=== PATIENT | male | born 1955 | race Caucasian/White ===

== ENCOUNTER 2019-07-29 09:39 | Outpatient (CLI) | payer MEDICARE, SELFPAY ==
[2019-07-29 09:55] LABS: Basophils Absolute Auto 0.1 K/mm3 (0.0-0.1); Basophils Percent Auto 0.6 % (0.2-1.2); Eosinophils Absolute Auto 0.2 K/mm3 (0-0.3); Eosinophils Percent Auto 1.4 % (0-4.4); Hematocrit 40.4 % (42.0-52.0); Hemoglobin 12.5 g/dL (14.0-18.0); Immature Granulocyte Absolute 0.07 K/mm3 (0.00-0.031); Immature Granulocyte Percent A 0.5 % (0-0.5); Lymphocytes Absolute Auto 2.71 K/mm3 (0.9-3.2); Lymphocytes Percent Auto 19.4 % (18.3-44.2); Mean Corpuscular HGB Conc 30.9 g/dl (32-36); Mean Corpuscular Hemoglobin 28.9 pg (26-34); Mean Corpuscular Volume 93.3 fl (80-100); Mean Platelet Volume 9.6 fl (7.4-10.4); Monocytes Absolute Auto 0.8 K/mm3 (0.1-0.6); Monocytes Percent Auto 5.9 % (2.6-8.5); Neutrophils Absolute Auto 10.1 K/mm3 (1.3-6.7); Neutrophils Percent Auto 72.2 % (45.5-73.1); Platelet Count Result 319 k/mm3 (150-375); Red Blood Count 4.33 M/mm3 (4.6-6.20); Red Cell Distribution Width 13.9 % (11.5-14.5)
[2019-07-29 12:21] LABS: Blood Urea Nitrogen 22 mg/dL (9-20); Calcium 8.8 mg/dL (8.4-10.2); Carbon Dioxide 25 mmol/L (22-30); Chloride 106 mmol/L (98-107); Estimated Glomerular Filt Rate 38; Glucose 109 mg/dL (75-110); Potassium 4.7 mmol/L (3.4-5.0); Sodium 139 mmol/L (137-145)
[2019-07-29 12:26] LABS: Immunoglobulin A 292 mg/dL (70-400); Immunoglobulin G 1654 mg/dL (700-1600); Immunoglobulin M 31 mg/dL (40-230)
[2019-07-31 03:35] LABS: Lambda Light Chain 43.9 mg/L (5.7-26.3)
[2019-07-31 23:20] LABS: Abnormal Protein Band 1 0.6 g/dL; Albumin 3.4 g/dL (3.8-4.8); Alpha 1 Globulin 0.4 g/dL (0.2-0.3); Beta 1 Globulin 0.4 g/dL (0.4-0.6); Gamma Globulin 1.5 g/dL (0.8-1.7); Protein, Total 7.1 g/dL (6.1-8.1)
== END 2019-07-29 09:40 | disposition home or self-care (01) ==
LOC: ANHLAB 09:40
PROVIDERS: PCP Internal Medicine; Visit Provider Internal Medicine Hematology & Oncology
DX: D47.2 Monoclonal gammopathy (principal)
CPT/HCPCS: 36415; 80048; 82784; 83883; 84155; 84165; 85025; 86334

== ENCOUNTER 2020-07-27 10:57 | Outpatient (CLI) | payer MEDICARE, SELFPAY ==
[2020-07-27 11:29] LABS: Basophils Absolute Auto 0.1 K/mm3 (0.0-0.1); Eosinophils Absolute Auto 0.3 K/mm3 (0-0.3); Eosinophils Percent Auto 2.7 % (0-4.4); Hematocrit 41.7 % (42.0-52.0); Hemoglobin 13.7 g/dL (14.0-18.0); Immature Granulocyte Absolute 0.03 K/mm3 (0.00-0.031); Immature Granulocyte Percent A 0.3 % (0-0.5); Lymphocytes Absolute Auto 2.37 K/mm3 (0.9-3.2); Lymphocytes Percent Auto 23.9 % (18.3-44.2); Mean Corpuscular HGB Conc 32.9 g/dl (32-36); Mean Corpuscular Hemoglobin 30.2 pg (26-34); Mean Corpuscular Volume 91.9 fl (80-100); Mean Platelet Volume 9.4 fl (7.4-10.4); Monocytes Absolute Auto 0.8 K/mm3 (0.1-0.6); Monocytes Percent Auto 8.1 % (2.6-8.5); Neutrophils Absolute Auto 6.4 K/mm3 (1.3-6.7); Platelet Count Result 259 k/mm3 (150-375); Red Blood Count 4.54 M/mm3 (4.6-6.20); Red Cell Distribution Width 14.2 % (11.5-14.5); White Blood Count 9.9 K/mm3 (4.5-10.0)
[2020-07-27 12:33] LABS: Alanine Aminotransferase 24 U/L (4-50); Albumin Level 4.2 g/dL (3.5-5.1); Alkaline Phosphatase 94 U/L (38-126); Anion Gap 6 mmol/L (8-16); Aspartate Amino Transferase 37 U/L (17-59); Bilirubin,Total 0.4 mg/dL (0.2-1.3); Blood Urea Nitrogen 24 mg/dL (9-20); Calcium 8.7 mg/dL (8.4-10.2); Carbon Dioxide 27 mmol/L (22-30); Chloride 108 mmol/L (98-107); Estimated Glomerular Filt Rate 33; Glucose 95 mg/dL (75-110); Potassium 5.3 mmol/L (3.4-5.0); Sodium 141 mmol/L (137-145)
[2020-07-27 12:42] LABS: Immunoglobulin A 244 mg/dL (70-400); Immunoglobulin G 1615 mg/dL (700-1600); Immunoglobulin M 32 mg/dL (40-230)
[2020-07-30 15:36] LABS: Kappa\\Lambda Light Chains 2.41 (0.26-1.65); Lambda Light Chain 40.4 mg/L (5.7-26.3)
[2020-07-30 22:21] LABS: Alpha 1 Globulin 0.3 g/dL (0.2-0.3); Alpha 2 Globulin 0.8 g/dL (0.5-0.9); Beta 1 Globulin 0.4 g/dL (0.4-0.6); Gamma Globulin 1.4 g/dL (0.8-1.7); Protein, Total 7.4 g/dL (6.1-8.1)
== END 2020-07-27 10:58 | disposition home or self-care (01) ==
LOC: ANHLAB 10:59
PROVIDERS: PCP Internal Medicine; Visit Provider Internal Medicine Hematology & Oncology
DX: D47.2 Monoclonal gammopathy (principal)
CPT/HCPCS: 36415; 80053; 82784; 83883; 84155; 84165; 85025; 86334

== ENCOUNTER 2021-07-26 09:25 | Outpatient (CLI) | payer MEDICARE, SELFPAY ==
[2021-07-26 09:50] LABS: Basophils Absolute Auto 0.1 K/mm3 (0.0-0.1); Basophils Percent Auto 0.9 % (0.2-1.2); Eosinophils Absolute Auto 0.3 K/mm3 (0-0.3); Eosinophils Percent Auto 3.2 % (0-4.4); Hematocrit 44.8 % (42.0-52.0); Hemoglobin 14.2 g/dL (14.0-18.0); Immature Granulocyte Absolute 0.04 K/mm3 (0.00-0.031); Immature Granulocyte Percent A 0.4 % (0-0.5); Lymphocytes Absolute Auto 2.11 K/mm3 (0.9-3.2); Lymphocytes Percent Auto 22.8 % (18.3-44.2); Mean Corpuscular HGB Conc 31.7 g/dl (32-36); Mean Corpuscular Hemoglobin 31.3 pg (26-34); Mean Corpuscular Volume 98.9 fl (80-100); Mean Platelet Volume 9.9 fl (7.4-10.4); Monocytes Absolute Auto 0.8 K/mm3 (0.1-0.6); Monocytes Percent Auto 8.8 % (2.6-8.5); Neutrophils Absolute Auto 5.9 K/mm3 (1.3-6.7); Neutrophils Percent Auto 63.9 % (45.5-73.1); Platelet Count Result 218 k/mm3 (150-375); Red Blood Count 4.53 M/mm3 (4.6-6.20); Red Cell Distribution Width 12.9 % (11.5-14.5); White Blood Count 9.3 K/mm3 (4.5-10.0)
[2021-07-26 15:45] LABS: Alanine Aminotransferase 47 U/L (4-50); Albumin Level 4.1 g/dL (3.5-5.1); Alkaline Phosphatase 91 U/L (38-126); Anion Gap 7 mmol/L (8-16); Aspartate Amino Transferase 53 U/L (17-59); Bilirubin,Total 0.5 mg/dL (0.2-1.3); Blood Urea Nitrogen 19 mg/dL (9-20); Calcium 8.9 mg/dL (8.4-10.2); Carbon Dioxide 24 mmol/L (22-30); Chloride 110 mmol/L (98-107); Estimated Glomerular Filt Rate 43; Glucose 96 mg/dL (65-110); Potassium 4.4 mmol/L (3.4-5.0); Sodium 141 mmol/L (137-145)
[2021-07-26 15:56] LABS: Immunoglobulin A 237 mg/dL (70-400); Immunoglobulin G 1195 mg/dL (700-1600); Immunoglobulin M 49 mg/dL (40-230)
[2021-07-29 05:21] LABS: Abnormal Protein Band 1 0.3 g/dL; Alpha 1 Globulin 0.3 g/dL (0.2-0.3); Alpha 2 Globulin 0.7 g/dL (0.5-0.9); Beta 1 Globulin 0.4 g/dL (0.4-0.6); Gamma Globulin 1.3 g/dL (0.8-1.7)
[2021-07-29 07:22] LABS: Kappa\\Lambda Light Chains 1.66 (0.26-1.65); Lambda Light Chain 35.8 mg/L (5.7-26.3)
== END 2021-07-26 09:26 | disposition home or self-care (01) ==
LOC: ANHLAB 09:26
PROVIDERS: PCP Internal Medicine; Visit Provider Internal Medicine Hematology & Oncology
DX: D47.2 Monoclonal gammopathy (principal)
CPT/HCPCS: 36415; 80053; 82784; 83883; 84155; 84165; 85025

== ENCOUNTER 2022-07-21 09:05 | Outpatient (CLI) | payer MEDICARE, SELFPAY ==
[2022-07-21 09:26] LABS: Basophils Absolute Auto 0.1 K/mm3 (0.0-0.1); Basophils Percent Auto 0.6 % (0.2-1.2); Eosinophils Absolute Auto 0.3 K/mm3 (0-0.3); Eosinophils Percent Auto 2.6 % (0-4.4); Hematocrit 43.4 % (42.0-52.0); Hemoglobin 14.3 g/dL (14.0-18.0); Immature Granulocyte Absolute 0.02 K/mm3 (0.00-0.031); Immature Granulocyte Percent A 0.2 % (0-0.5); Lymphocytes Absolute Auto 2.16 K/mm3 (0.9-3.2); Lymphocytes Percent Auto 22.5 % (18.3-44.2); Mean Corpuscular HGB Conc 32.9 g/dl (32-36); Mean Corpuscular Hemoglobin 31.4 pg (26-34); Mean Corpuscular Volume 95.4 fl (80-100); Mean Platelet Volume 9.7 fl (7.4-10.4); Neutrophils Absolute Auto 6.1 K/mm3 (1.3-6.7); Neutrophils Percent Auto 64.1 % (45.5-73.1); Platelet Count Result 228 k/mm3 (150-375); Red Blood Count 4.55 M/mm3 (4.6-6.20); Red Cell Distribution Width 12.3 % (11.5-14.5); White Blood Count 9.6 K/mm3 (4.5-10.0)
[2022-07-21 09:54] LABS: Alanine Aminotransferase 25 U/L (6-50); Albumin Level 4.2 g/dL (3.5-5.1); Alkaline Phosphatase 82 U/L (38-126); Anion Gap 6 mmol/L (8-16); Aspartate Amino Transferase 41 U/L (17-59); Bilirubin,Total 0.7 mg/dL (0.2-1.3); Blood Urea Nitrogen 16 mg/dL (9-20); Calcium 8.5 mg/dL (8.4-10.2); Carbon Dioxide 30 mmol/L (22-30); Chloride 105 mmol/L (98-107); Estimated Glomerular Filt Rate 50; Glucose 105 mg/dL (65-110); Immunoglobulin A 232 mg/dL (70-400); Immunoglobulin G 1274 mg/dL (700-1600); Immunoglobulin M 47 mg/dL (40-230); Potassium 3.8 mmol/L (3.4-5.0); Sodium 141 mmol/L (137-145)
[2022-07-25 12:30] LABS: Abnormal Protein Band 1 0.3 g/dL; Albumin 3.8 g/dL (3.8-4.8); Alpha 1 Globulin 0.3 g/dL (0.2-0.3); Alpha 2 Globulin 0.8 g/dL (0.5-0.9); Beta 1 Globulin 0.4 g/dL (0.4-0.6); Gamma Globulin 1.2 g/dL (0.8-1.7); Protein, Total 6.9 g/dL (6.1-8.1)
[2022-07-26 09:49] LABS: Kappa\\Lambda Light Chains 1.49 (0.26-1.65); Lambda Light Chain 37.1 mg/L (5.7-26.3)
== END 2022-07-21 09:06 | disposition home or self-care (01) ==
LOC: ANHLAB 09:06
PROVIDERS: PCP Internal Medicine; Visit Provider Internal Medicine Hematology & Oncology
DX: D47.2 Monoclonal gammopathy (principal)
CPT/HCPCS: 36415; 80053; 82784; 83883; 84155; 84165; 85025

== ENCOUNTER 2023-07-12 10:41 | Outpatient (CLI) | payer MEDICARE, SELFPAY ==
[2023-07-12 11:05] LABS: Basophils Absolute Auto 0.1 K/mm3 (0.0-0.1); Basophils Percent Auto 0.9 % (0.2-1.2); Eosinophils Absolute Auto 0.4 K/mm3 (0-0.3); Eosinophils Percent Auto 5.4 % (0-4.4); Hematocrit 40.6 % (42.0-52.0); Hemoglobin 13.4 g/dL (14.0-18.0); Immature Granulocyte Absolute 0.01 K/mm3 (0.00-0.031); Immature Granulocyte Percent A 0.1 % (0-0.5); Lymphocytes Absolute Auto 2.04 K/mm3 (0.9-3.2); Lymphocytes Percent Auto 28.9 % (18.3-44.2); Mean Corpuscular Hemoglobin 31.4 pg (26-34); Mean Corpuscular Volume 95.1 fl (80-100); Monocytes Absolute Auto 0.6 K/mm3 (0.1-0.6); Monocytes Percent Auto 9.1 % (2.6-8.5); Neutrophils Absolute Auto 3.9 K/mm3 (1.3-6.7); Neutrophils Percent Auto 55.6 % (45.5-73.1); Platelet Count Result 213 k/mm3 (150-375); Red Blood Count 4.27 M/mm3 (4.6-6.20); Red Cell Distribution Width 12.4 % (11.5-14.5); White Blood Count 7.1 K/mm3 (4.5-10.0)
[2023-07-12 17:20] LABS: Alanine Aminotransferase 24 U/L (6-50); Alkaline Phosphatase 81 U/L (38-126); Anion Gap 7 mmol/L (8-16); Aspartate Amino Transferase 38 U/L (17-59); Bilirubin,Total 0.6 mg/dL (0.2-1.3); Blood Urea Nitrogen 25 mg/dL (9-20); Calcium 8.9 mg/dL (8.4-10.2); Carbon Dioxide 24 mmol/L (22-30); Chloride 110 mmol/L (98-107); Estimated Glomerular Filt Rate 40; Glucose 97 mg/dL (65-110); Potassium 4.5 mmol/L (3.4-5.0); Sodium 141 mmol/L (137-145)
[2023-07-14 12:14] LABS: Immunoglobulin A 230 mg/dL (70-400); Immunoglobulin G 1360 mg/dL (700-1600); Immunoglobulin M 44 mg/dL (40-230)
[2023-07-14 21:01] LABS: Kappa\\Lambda Light Chains 1.84 (0.26-1.65); Lambda Light Chain 36.2 mg/L (5.7-26.3)
[2023-07-15 09:00] LABS: Abnormal Protein Band 1 0.3 g/dL; Albumin 3.8 g/dL (3.8-4.8); Alpha 1 Globulin 0.3 g/dL (0.2-0.3); Alpha 2 Globulin 0.7 g/dL (0.5-0.9); Beta 1 Globulin 0.4 g/dL (0.4-0.6); Gamma Globulin 1.2 g/dL (0.8-1.7); Protein, Total 6.7 g/dL (6.1-8.1)
== END 2023-07-12 10:42 | disposition home or self-care (01) ==
LOC: ANHLAB 10:43
PROVIDERS: PCP Internal Medicine; Visit Provider Internal Medicine Hematology & Oncology
DX: D47.2 Monoclonal gammopathy (principal)
CPT/HCPCS: 36415; 80053; 82784; 83883; 84155; 84165; 85025

== ENCOUNTER 2024-06-24 07:20 | Outpatient (CLI) | payer MEDICARE, SELFPAY | END 2024-06-24 07:21 | disposition home or self-care (01) | PROVIDERS: PCP Internal Medicine; Visit Provider Otolaryngology | DX: H72.92 Unspecified perforation of tympanic membrane, left ear (principal) | CPT/HCPCS: 70480 ==

== ENCOUNTER 2024-07-31 09:44 | Outpatient (CLI) | payer MEDICARE, SELFPAY ==
[2024-07-31 10:12] LABS: Basophils Absolute Auto 0.1 K/mm3 (0.0-0.1); Basophils Percent Auto 0.8 % (0.2-1.2); Eosinophils Absolute Auto 0.3 K/mm3 (0-0.3); Eosinophils Percent Auto 3.9 % (0-4.4); Hematocrit 40.3 % (42.0-52.0); Hemoglobin 13.5 g/dL (14.0-18.0); Immature Granulocyte Absolute 0.04 K/mm3 (0.00-0.031); Immature Granulocyte Percent A 0.5 % (0-0.5); Lymphocytes Absolute Auto 1.84 K/mm3 (0.9-3.2); Lymphocytes Percent Auto 22.3 % (18.3-44.2); Mean Corpuscular HGB Conc 33.5 g/dl (32-36); Mean Corpuscular Hemoglobin 31.8 pg (26-34); Mean Corpuscular Volume 94.8 fl (80-100); Mean Platelet Volume 9.5 fl (7.4-10.4); Monocytes Absolute Auto 0.8 K/mm3 (0.1-0.6); Monocytes Percent Auto 9.8 % (2.6-8.5); Neutrophils Absolute Auto 5.2 K/mm3 (1.3-6.7); Neutrophils Percent Auto 62.7 % (45.5-73.1); Platelet Count Result 208 k/mm3 (150-375); Red Blood Count 4.25 M/mm3 (4.6-6.20); Red Cell Distribution Width 11.9 % (11.5-14.5); White Blood Count 8.3 K/mm3 (4.5-10.0)
--- OUTSIDE RECORDS SUMMARY | 2024-07-31 10:51 | XMS_ITS | Clinical Summary ---
Author Organization [facility] Address [address] [place] [address] Care Team Providers Care Sheet Metal Engineer Name Role Phone Shyam Bassett DO Primary Care Provider [phone] Allergies No known active allergies Medications aspirin (NGA) 325 mg tablet Take 325 mg by mouth daily. Active lisinopril (PRINIVIL) 20 mg tablet Take 20 mg by mouth daily. Active simvastatin (ZOCOR) 20 mg tablet Take 20 mg by mouth late in the day. Active diltiaZEM (CARDIZEM CD) 240 mg Controlled Delivery 24 hour capsule Take 240 mg by mouth daily. Active ferrous sulfate 325 mg (65 mg iron) tablet Take 325 mg by mouth 2 times daily . Active levothyroxine 50 mcg tablet Take 50 mcg by mouth daily wind plant manager. Active CHOLECALCIFEROL, VITAMIN D3, ORAL Take by mouth. Active sertraline (ZOLOFT) 50 mg tablet Take 50 mg by mouth daily. 06/28/2022 Active Active Problems Problem Noted Date Diagnosed Date MGUS (monoclonal gammopathy of unknown significa nce) 06/12/2017 Benign hypertension 08/19/2016 Leukemoid reaction 08/19/2016 Chronic anemia 08/19/2016 Encounters Date Type Department Care Team Description 07/31/2024 Orders Only [facility] Oncology and Hematology - Alli [address] [address] Reji Escalona MD MGUS (monoclonal gammopathy of unknown significance) (Primary Dx) 07/10/2024 External Device Data STL ABSTRACTION Provider, Abstract 07/01/2024 External Device Data STL ABSTRACTION Provider, Abstract 06/18/2024 External Device Data STL ABSTRACTION Provider, Abstract 05/22/2024 External Device Data STL ABSTRACTION Provider, Abstract 05/16/2024 External Device Data STL ABSTRACTION Provider, Abstract from Last 3 Months Family History Medical History Relation Name Comments Heart Disease Brother Cancer Father Heart Disease Father Heart Disease Mother Stroke Mother Stroke Sister Relation Name Status Comments Brother Alive Father Mother Alive Sister Alive Social History Tobacco Use Types Packs/Day Years Used Date Smoking Tobacco: Former Cigarettes 0.3 2 0 08/19/1986 - 08/19/1988 Pipe Smokeless Tobacco: Never Tobacco Cessation:Counseling Given: Not Answered Alcohol Use Standard Drinks/Week Comments Yes 0 (1 standard drink = 0.6 oz pur e alcohol) occasional Sex and Gender Information Value Date Recorded Sex Assigned at Not on file Legal Sex Male 9:20 AM CDT Gender Identity Not on file Sexual Orientation Not on file Last Filed Vital Signs Vital Sign Reading Time Taken Comments Blood Pressure 124/75 07/20/2023 9:58 AM CDT Pulse 103 07/20/2023 9:58 AM CDT Temperature 36.7 C (98 F) 07/20/2023 9:58 AM CDT Respiratory Rate 14 07/20/2023 9:58 AM CDT Oxygen Saturation 95% 07/20/2023 9:58 AM CDT Inhaled Oxygen Concentration - - Weight 100.1 kg (220 lb 9.6 oz) 07/20/2023 9:58 AM CDT Height 175.3 cm (5' 9 ) 08/05/2021 11:4 1 AM CDT Body Mass Index 32.58 08/05/2021 11:41 AM CDT Plan of Treatment Upcoming Encounters Date Type Department Care Team (Late st Contact Info) Description 08/08/2024 10:00 AM CDT Office Visit [facility] Oncology and Hematology - Alli [address] [facility] [address] [place] [address] Reji Escalona MD [address] [facility] [address] [place] [address] Health Maintenance Due Date Last Done Comments DTAP/TDAP/TD VACCINES (1 - Tdap) 1972 COLORECTAL SCREENING 1998 Colorectal Cancer Screening 1998 FIT-DNA Q 3 years 1998 FIT/FOBT Q 1 year 1998 Flex Sig/CT Colonography Q 5 years 1998 PNEUMOCOCCAL VACCINE 50+ YEA RS (1 of 1 - PCV) 2003 ZOSTER VACCINE (1 of 2) 2003 RSV VACCINE (60+ or ) (1 - Risk 60-74 years 1-dose series) 2013 INFLUENZA VACCINE (#1) 2023 02/10/2020, 2019 Medicare Advantage ([place]) Prev entative Visit/Annual Wellness Visit 04/24/2024 Insurance Care Teams Sheet Metal Engineer Relationship Specialty Start Date End Date Shyam Bassett DO [address] [place] [address] PCP - General Internal Medicine 08/15/16
--- OUTSIDE RECORDS SUMMARY | 2024-07-31 10:51 | XMS_ITS | Clinical Summary ---
Author Organization [facility] Address [address] [place] [address] Phone Care Team Providers Care Bagging Machine Operator Name Role Phone Shyam Bassett DO Primary Care Provider [phone] Allergies No known active allergies Medications aspirin 325 MG EC tablet 1 tab/cap qday 0 01/01/2017 Active Vitamins-Lipotro pics (COMPLEX B-100) tablet controlled-relea se Take 1 tablet by mouth daily Active levothyroxine (SYNTHROID, LEVOTHROID) 50 MCG tablet 07/24/2019 Active lisinopril (PRINIVIL,ZESTRI L) 20 MG tablet 08/13/2019 Act dana simvastatin (ZOCOR) 20 MG tablet 08/05/2019 Active dilTIAZem CD (CARDIZEM CD) 240 MG 24 hr capsule Take by mouth 1 (one) time each day 01/17/2020 Active ferrous sulfate 324 (65 Fe) MG EC tablet Take 324 mg by mouth 2 (two) times a day 04/11/2020 Active cholecalciferol, vitamin D3, 200 Unit tablet Take by mouth Active Active Problems Problem Noted Date Diagnosed Date Monoclonal gammopathy of uncertain significance 06/12/2017 Abnormal result of kidney function study 017 Chronic kidney disease, stage 3 (moderate) 01/01 Essential (primary) hypertension 01/01/2017 Hypertensive chronic kidney disease with stage 1 through stage 4 chronic kidney disease, or unspecified chronic kidney disease 01/01/2017 Other hyperlipidemia 01/01/2017 Overview (07/07/2018): Converted unresolved ICD9, potential mismatch. Chronic anemia 08/19/2016 Immunizations Immunization Administration Dates Next Due Influenza, Quadrivalent 02/10/2020 Sars-cov-2, Unspecified 01/30/2021,08/30/2020, Family History Medical History Relation Comments Heart failure Father Hypertensive disorder Father Malignant neoplastic disease Father Heart disease Mother Hypertensive disorder Mother Dyslipidemia Sibling Hypertensive disorder Sibling Kidney disease Neg Hx Kidney stone Neg Hx Relation Status Comments Father Mother Sibling Social History Tobacco Use Types Packs/Day Years Used Date Smoking Tobacco: Former Smokeless Tobacco: Never Alcohol Use Standard Drinks/Week Comments Yes 0 (1 standard drink = 0.6 oz pur e alcohol) Sex and Gender Information Value Date Recorded Sex Assigned at Not on file Legal Sex Male 7:33 AM MST Gender Identity Not on file Sexual Orientation Not on file Last Filed Vital Signs Vital Sign Reading Time Taken Comments Blood Pressure 132/74 01/05/2022 9:15 AM CDT Pulse - - Temperature 36.3 C (97.4 F) 01/05/2022 9:15 AM CDT Respiratory Rate 18 01/05/2022 9:15 AM CDT Oxygen Saturation - - Inhaled Oxygen Concentration - - Weight 103 kg (228 lb) 01/05/2022 9:15 AM CDT Height 175.3 cm (5' 9 ) 01/05/2022 9:15 AM CDT Body Mass Index 33.67 01/05/2022 9:15 AM CDT Plan of Treatment Health Maintenance Due Date Last Done Comments Pneumococcal PPSV23/PCV13 65 + Years / High and Highest Risk (1 of 4 - PCV) 1959 Pneumococcal PPSV23/PCV13 65 + Years / Low and Medium Risk (1 of 4 - PCV) 2018 Influenza Vaccine (Season Ended) 2024 Insurance [employer] MEDICARE Care Teams Bagging Machine Operator Relationship Specialty Start Date End Date Shyam Bassett DO [address] [place] [address] PCP - General Internal Medicine 09/11/18
--- OUTSIDE RECORDS SUMMARY | 2024-07-31 10:51 | XMS_ITS | Encounter Summary ---
Author Organization [facility] Address [address] [place] [address] Care Team Providers Care Fisheries Manager Name Role Phone Shyam Bassett DO Primary Care Provider [phone] Encounter Details Date Type Department Care Team (Late Contact Info) Description 07/31/2024 Orders Only [facility] Oncology and Hematology [facility] [address] [place] [address] Reji Escalona MD [facility] [address] [place] [address] MGUS (monoclonal gammopathy of unknown significance) (Primary Dx) Social History Tobacco Use Types Packs/Day Years Used Date Smoking Tobacco: Former Cigarettes 0.3 2 0 08/19/1986 - 08/19/1988 Pipe Smokeless Tobacco: Never Alcohol Use Standard Drinks/Week Comments Yes 0 (1 standard drink = 0.6 oz pur e alcohol) occasional Sex and Gender Information Value Date Recorded Sex Assigned at Not on file Legal Sex Male 9:20 AM CDT Gender Identity Not on file Sexual Orientation Not on file documented as of this encounter Plan of Treatment Upcoming Encounters Date Type Department Care Team (Late st Contact Info) Description 08/08/2024 10:00 AM CDT Office Visit [facility] Oncology and Hematology - Alli [address] [place] [address] Reji Escalona MD [address] [place] [address] Scheduled Orders Name Type Priority Associated Diagnoses Orde r Schedule CBC WITH DIFFERENTIAL Lab Stat MGUS (monoclonal gammopathy of unknown significance) Expected: 07/31/2024, Expires: 07/31/2025 COMPREHENSIVE METABOLIC PANEL Lab Stat MGUS (monoclonal gammopathy of unknown significance) Expected: 07/31/2024, Expires: 07/31/2025 IMMUNOGLOBULINS IGG IGA IGM Lab Stat MGUS (monoclonal gammopathy of unknown significance) Expected: 07/31/2024, Expires: 07/31/2025 KAPPA/LAMBDA, FREE LIGHT CHAINS Lab Stat MGUS (monoclonal gammopathy of unknown significance) Expected: 07/31/2024, Expires: 07/31/2025 PROTEIN ELECTROPHORESIS W/REFLEX,SERUM Lab Stat MGUS (monoclonal gammopathy of unknown significance) Expected: 07/31/2024, Expires: 07/31/2025 documented as of this encounter Visit Diagnoses Diagnosis MGUS (monoclonal gammopathy of unknown significance)- Primary Monoclonal paraproteinemia documented in this encounter Care Teams Fisheries Manager Relationship Specialty Start Date End Date Shyam Bassett DO [address] [facility] [address] [address] PCP - General Internal Medicine 08/15/16 documented as of this encounter
--- OUTSIDE RECORDS SUMMARY | 2024-07-31 10:51 | XMS_ITS | Clinical Summary ---
Author Organization [facility] Address [address] [place] [address] Care Team Providers Care Fermentation Scientist Name Role Phone Shyam Bassett Primary Care Provider Source Comments [facility],non-owned Affiliates and Associated Physician Practices is amultiple site organization consisting of ambulatory clinics and hospital sitesin [place], [place], [place] and [place]. This disclosure is being madepursuant to the Care Everywhere program and may not contain all information available regarding this patient. Last updated 18.[facility] Immunizations Name Administration Dates Next Due INFLUENZA VACCINE, HIGH-DOSE , QUADR. (FLUZONE HIGH-DOSE QUADRIVALENT; 65Y+), 0.7 ML (HD-IIV4) 02/10/2020 Social History Tobacco Use Types Packs/Day Years Used Date Smoking Tobacco: Never Assessed Sex and Gender Information Value Date Recorded Sex Assigned at Not on file Gender Identity Not on file Sexual Orientation Not on file Plan of Treatment Health Maintenance Due Date Last Done Comments COLOGUARD (AGES 45-75) - COL ON CA SCREENING 1953 COLON MONITORING 1953 COLONOSCOPY - COLON CA SCREENING 1953 CT COLONOGRAPHY - COLON CA SCREENING 1953 Colorectal Cancer Screening 1953 FIT - COLON CA SCREENING 1953 FLEX SIG - COLON CA SCREENING 1953 LIPID TESTING 1953 HEPATITIS C SCREENING 04/16/1971 DTAP/TDAP/TD VACCINES (1 - Tdap) 1972 PNEUMOCOCCAL VACCINE 50+ (1 of 1 - PCV) 2003 ZOSTER VACCINE (1 of 2) 2003 COVID-19 VACCINE (1 - 2023-2 5 season) 2023 DEPRESSION SCREENING 04/24/2024 MEDICARE AWV CALENDAR YEAR 2024 INFLUENZA VACCINE (Season Ended) 2024 02/10/20 20 Respiratory Syncytial Virus (RSV) Vaccine Pt: or over 60 yrs (1 - 1-dose 75+ series) 2028 HEPATITIS B VACCINE Aged Out No longe r eligible based on patient's age to complete this topic HIB VACCINE Aged Out No longer eligi ble based on patient's age to complete this topic HPV VACCINE Aged Out No longer eligi ble based on patient's age to complete this topic MENINGOCOCCAL (Group B) VACC INE SHARED DECISION-MAKING Aged Out No longer eligibl e based on patient's age to complete this topic MENINGOCOCCAL GROUPS A/C/Y/W VACCINE Aged Out No longer eligible b ased on patient's age to complete this topic Care Teams Fermentation Scientist Relationship Specialty Start Date End Date Shyam Bassett DO [address] [facility] [address] [place] [address] PCP - General 10/10/18
--- OUTSIDE RECORDS SUMMARY | 2024-07-31 10:51 | XMS_ITS | Continuity of Care Document ---
Author Organization [facility] Address [address] [place] [address] Phone Care Team Providers Care Rolling Machine Tender Name Role Phone Mahesh Tracey Unavailable Unavailable Advance Directives Directive Yes / No Effective Date File Name No Information Encounters Encounter Description Practice Location Reason(s) For Visit Diagnoses Date Provider Providers Copied on Encounter [facility], [address], [place], [place], [id number], [place] tel:[phone] [facility] No Information 6-[address] 0 Doisy Edward. [address] , [address], [place], [address], [place]. tel:[phone] Family History Family Member Type Diagnosis Age At Onset No Information Payers Payer name Insurance type Covered constitution party ID Authoriza tion(s) No Information Social History [...]
[2024-07-31 12:23] LABS: Cholesterol 181 mg/dL (0-200); HDL Direct 38 mg/dL; Triglycerides 137 mg/dL (<150)
[2024-07-31 12:29] LABS: Immunoglobulin A 225 mg/dL (70-400); Immunoglobulin G 1331 mg/dL (700-1600); Immunoglobulin M 37 mg/dL (40-230)
[2024-07-31 12:34] LABS: LDL Cholesterol Direct 104 mg/dL
[2024-07-31 12:52] LABS: Hemoglobin A1C 5.5 % (<5.7)
[2024-07-31 12:57] LABS: Prostate Specific Antigen 4.4 ng/mL (< OR = 4.0)
[2024-07-31 13:33] LABS: Iron 61 ug/dL (49-181)
[2024-07-31 13:43] LABS: Percent Iron Saturation 25 % (20-50)
[2024-07-31 13:45] LABS: Alanine Aminotransferase 25 U/L (6-50); Albumin Level 4.2 g/dL (3.5-5.1); Alkaline Phosphatase 87 U/L (38-126); Anion Gap 12 mmol/L (4-12); Aspartate Amino Transferase 42 U/L (17-59); Bilirubin,Total 0.6 mg/dL (0.2-1.3); Blood Urea Nitrogen 27 mg/dL (9-20); Calcium 8.8 mg/dL (8.4-10.2); Carbon Dioxide 23 mmol/L (22-30); Chloride 108 mmol/L (98-107); Estimated Glomerular Filt Rate 36; Glucose 99 mg/dL (65-110); Potassium 4.6 mmol/L (3.4-5.0); Sodium 143 mmol/L (137-145)
[2024-07-31 19:58] LABS: Folic Acid 12.3 ng/mL (2.76->20)
[2024-08-01 08:58] LABS: Protein, Total 6.9 g/dL (6.1-8.1)
[2024-08-01 15:22] LABS: Kappa\\Lambda Light Chains 1.75 (0.26-1.65); Lambda Light Chain 38.5 mg/L (5.7-26.3)
[2024-08-01 20:58] LABS: Abnormal Protein Band 1 0.3 g/dL (NONE DETECTED); Albumin 3.9 g/dL (3.8-4.8); Alpha 1 Globulin 0.3 g/dL (0.2-0.3); Alpha 2 Globulin 0.7 g/dL (0.5-0.9); Beta 1 Globulin 0.4 g/dL (0.4-0.6); Gamma Globulin 1.2 g/dL (0.8-1.7)
== END 2024-07-31 09:45 | disposition home or self-care (01) ==
LOC: ANHLAB 09:45
PROVIDERS: PCP Internal Medicine; Visit Provider Internal Medicine Hematology & Oncology
DX: D47.2 Monoclonal gammopathy (principal); Z12.5 Encounter for screening for malignant neoplasm of prostate; E78.5 Hyperlipidemia, unspecified; E03.9 Hypothyroidism, unspecified; I12.9 Hypertensive chronic kidney disease with stage 1 through stage 4 chronic kidney disease, or unspecified chronic kidney disease; D64.9 Anemia, unspecified; N18.32 Chronic kidney disease, stage 3b
CPT/HCPCS: 36415; 80053; 80061; 82607; 82728; 82746; 82784; 83036; 83540; 83550; 83883; 84153; 84155; 84165; 84443; 85025; G0103

== ENCOUNTER 2025-02-13 16:55 | Emergency (ER) | payer MEDICARE, SELFPAY ==
--- OUTSIDE RECORDS SUMMARY | 1999-08-18 06:15 | XMS_ITS | Continuity of Care Document ---
Author Organization [facility] Address [address] [place] [address] Phone Care Team Providers Care Residential Solar Sales Consultant Name Role Phone Mahesh Tracey Unavailable Unavailable Advance Directives Directive Yes / No Effective Date File Name No Information Encounters Encounter Description Practice Location Reason(s) For Visit Diagnoses Date Provider Providers Copied on Encounter [facility], [id number] [place] [address] [address], [place], [place], [id number], [place] tel:[phone] [facility] No Information [phone] Doisy Edward. [address] , [address], [place], [address], [place]. tel:[phone] Family History Family Member Type Diagnosis Age At Onset No Information Payers Payer name Insurance type Covered democrat ID Authoriza tion(s) No Information Social History Type Description Quantity Date Captured Comments Sex Male Smoking Status No Information Chief Complaint And Reason For Visit No Information Reason For Referral Reason For Referral No Information History Of Present Illness Encounter Date Complaint History Of Prese nt Illness No Information Functional Status Date Functional Assessmen t No Information Instructions Date Instruction Additional Infor mation No Information Assessments Type Assessment Date No Information Patient Care Teams Name Effective Dates (start - stop) Status Members No Information
--- NOTE | ~2025-02-13 | CT_ITS ---
EXAMINATION: CT brain wo con DATE: 02/13/2025 17:13 INDICATION: Fall TECHNIQUE: Computed tomography (CT) of the head was performed without intravenous contrast. Sagittal and coronal reconstructions were performed. The mA was adjusted according to patient size. Iterative reconstruction technique was employed. The dose-length product was 605.33 mGy-cm. COMPARISON: CT dated 06/24/2024 FINDINGS: No calvarial fracture. Bilateral nasal bone fractures with slight rightward displacement and soft tissue at the bridge of the nose. There is also a likely acute fracture of the nasal septum with some buckling evident on the axial images which is not appreciated on the prior CT. No acute intracranial he morrhage, acute infarction or abnormal extra axial fluid collection. There is mild scattered white matter hypoattenuation consistent with chronic small vessel ischemic disease. Symmetric prominence of the sulci consistent with mild age- appropriate diffuse cerebral volume loss. Ventricles are normal and symmetric. No mass/mass effect. Interval left mastoidectomy with chronic densities at the left middle ear cavity and displacement is erosions of the ossicles. Unchanged small right mastoid effusion. Mucosal thickening throughout the paranasal sinuses with small amount of dependently layering fluid in the bilateral maxillary and right sphenoid sinus is some of which demonstrates increased attenuation consistent with blood related to the nasal bone fractures. The orbits are normal. IMPRESSION: 1. Mild rightward displacement bilateral nasal bone fractures and mild buckling of likely acute fracture of the nasal septum. 2. No calvarial fracture or acute intracranial process. 3. Age-related changes in the brain including mild diffuse volume loss and mild scattered white matter hypoattenuation consistent with chronic small vessel ischemic disease. Reviewed, dictated and finalized at location A. IMPRESSION: 1. Mild rightward displacement bilateral nasal bone fractures and mild buckling of likely acute fracture of the nasal septum. 2. No calvarial fracture or acute intracranial process. 3. Age-related changes in the brain including mild diffuse volume loss and mild scattered white matter hypoattenuation consistent with chronic small vessel is chemic disease.
--- NOTE | ~2025-02-13 | CT_ITS ---
EXAMINATION: CT cervical spine wo con COMPARISON: None HISTORY: fall TECHNIQUE: Axial images were obtained through the spine without IV contrast. Coronal, sagittal reconstruction images were obtained from the axial views. CT scan performed using dose optimization techniques including the following automated exposure control; adjustment of mA and/or kV; use of iterative reconstruction technique. Automatic exposure control was used to reduce radiation dose. Permanent radiation dose record is archived to PACS. FINDINGS: Grade 1 anterolisthesis of C3 on C4, no fracture identified. Moderate loss of disc height C5-6 and C6-7 with moderate to severe canal and foraminal stenosis. Soft tissues unremarkable. Impression: No acute abnormality. Reviewed, dictated and finalized at location P. Impression: No acute abnormality.
[2025-02-13 16:55] VITALS: BP 120/84; PULSE 87; RESP 16; TEMP 36.6; O2SAT 97
--- NOTE | 2025-02-13 17:38 | ED.FALL ---
HPI - Fall General Chief Complaint: Fall Stated Complaint: mechanical fall with injuries Time Seen by Provider: 02/13/25 16:58 Source: patient Mode of arrival: ambulatory Limitations: no limitations History of Present Illness HPI Narrative: 69-year-old hypertension, hyperlipidemia , CKD was brought in by EMS from school tripped on school bag and fell forward on his face. Denies LOC or neck pain complaint: fall Onset (ago): minute(s) (30) Fall from: standing Fall witnessed: yes, by bystander Place fall occurred: school Loss of consciousness: none Prolonged down time: no Symptoms prior to fall: none Context: tripped/slipped Location of injury: face Related Data Home Medications ?Medication ?Instructions ?Recorded ?Confirmed ?Last Taken ?Type aspirin 325 mg tablet 325 mg PO DAILY 03/25/19 02/03/25 Unknown History [id number] 200 mcg-vit K 15 2 tablet PO DAILY 10/05/20 02/03/25 Unknown History mcg-lycope 150 bsk-aeubrp-ewfc tablet (Ocuvite Eye Plus Multi) cholecalciferol (vitamin D3) 10 10 mcg PO DAILY 01/03/24 02/03/25 Unknown History mcg (400 unit) capsule cyanocobalamin (vitamin B-12) 1,000 mcg PO .every other day 06/24/24 02/03/25 Unknown History 1,000 mcg capsule Allergies Allergy/AdvReac Type Severity Reaction Status Date / Time No Known Allergies Allergy Unknown Verified 02/13/25 17:02 Review of Systems Review of Systems: All systems reviewed & are unremarkable except as noted in HPI and below ROS unobtainable: Yes unobtainable due to endotracheal tube Constitutional: Constitutional: Reports no additional constitutional complaints Eyes: Eyes: Reports no additional eye complaints ENT: Reports system reviewed and no additional complaints, except as documented Cardiovascular: Cardiovascular: Reports no additional cardiovascular complaints Respiratory: Respiratory: Reports no additional respiratory complaints Gastrointestinal: Gastrointestinal: Reports no additional gastrointestinal complaints Genitourinary: Genitourinary: Reports no additional male genitourinary complaints Integumentary/Breasts: Skin/Breast: Reports as per HPI Neurologic: Reports system reviewed and no additional complaints, except as documented PMFSH Past Medical History Medical History Perforated ear drum BMI 29.0-29.9,adult Weight loss Pure hypercholesterolemia Physical exam, pre-employment Other fatigue Hyperkalemia Essential (primary) hypertension Encounter for screening for malignant neoplasm of prostate Colon cancer screening CKD (chronic kidney disease) Hypertension Obesity Anemia Hypothyroidism Hyperlipidemia Surgical History Surgical History History of ear surgery Family History Family History Mother Hypertension Sibling Hypertension Family history of elevated blood lipids Father No problems noted. Social History Social History Smoking status: Former smoker Tobacco type: pipe Second hand tobacco smoke exposure: No Smoking end date: 04/24/86 Alcohol intake: current Substance use: never Substance use type: does not use Do You Feel Safe in your Home?: Yes Lack of Transportation: No Lack of Food: Never True Current Housing: I Have Housing Concerned About Future Housing: No Difficulty Paying Gas/Electric Bills: No Difficulty Paying for Meds: No Currently Unemployed: No Education: Bachelor's Degree Difficulty w/ Childcare or Family Care: No Living arrangements: alone Occupation/Education: retired Additional occupation/education comments: teacher-substitute Gender identity (if verbalized by the patient): Male Exam Narrative: GENERAL: Well-appearing, well-nourished, and in no acute distress. HEAD: Normocephalic, atraumatic. EYES: PERRLA and EOMI. asmall lac on the left eye brow with mild bleeding ENT:. Mucous membranes moist. mild bleeding through the right nares NECK: Supple. CHEST: Clear to auscultation. No respiratory distress. HEART: Regular rate and rhythm. No murmur heard. Normal peripheral pulses. ABDOMEN: Soft, nontender, nondistended, normal active bowel sounds. EXTREMITIES: Normal range of motion. No edema. SKIN: Warm, dry, no rash. NEURO: No focal deficits. Alert and oriented x3. PSYCH: Normal mood and affect. Course Course Emergency Course: notified pt about his CT findings , C -Collar was removed , lac on the left eye brow dermobonded . Vital Signs Vital signs: Vital Signs Temperature 36.6 C 02/13/25 16:55 Pulse Rate 87 02/13/25 16:55 Respiratory Rate 16 02/13/25 16:55 Blood Pressure 120/84 02/13/25 16:55 Pulse Oximetry 97 02/13/25 16:55 Oxygen Delivery Room Air 02/13/25 16:55 Temperature 36.6 C 02/13/25 16:55 Pulse Rate 87 02/13/25 16:55 Respiratory Rate 16 02/13/25 16:55 Blood Pressure 120/84 02/13/25 16:55 Pulse Oximetry 97 02/13/25 16:55 Oxygen Delivery Room Air 02/13/25 16:55 Procedures Laceration Laceration 1: Date: 02/13/25 Time: 17:50 Site: face (left eye brow) Side (If applicable): left Size (cm): 1 Description: linear Pre-repair: irrigated ====== Skin Level ====== Skin layer closed with: dermabond ====== Subcutaneous Layer ====== ====== Muscle Layer ====== ====== Tendon Layer ====== MDM - Fall Differential Diagnosis Differential diagnosis: Likely concussion with loss of consciousness and other (intracranial bleed) Medical Records Attestation: I reviewed the patient's medical records. Imaging Data Radiologist's impression: ITS Impressions Head CT 02/13/25 17:15 IMPRESSION: 1. Mild rightward displacement bilateral nasal bone fractures and mild buckling of likely acute fracture of the nasal septum. 2. No calvarial fracture or acute intracranial process. 3. Age-related changes in the brain including mild diffuse volume loss and mild scattered white matter hypoattenuation consistent with chronic small vessel ischemic disease. Cervical Spine CT 02/13/25 17:20 Impression: No acute abnormality. Discharge Plan Discharge Clinical Impression: Minor head injury Qualifiers: Encounter type: initial encounter Qualified Code(s): S09.90XA - Unspecified injury of head, initial encounter Fracture of nasal bone Qualifiers: Encounter type: initial encounter Fracture type: closed Qualified Code(s): S02.2XXA - Fracture of nasal bones, initial encounter for closed fracture Laceration of eyebrow Qualifiers: Encounter type: initial encounter Laterality: left Qualified Code(s): S01.112A - Laceration without foreign body of left eyelid and periocular area, initial encounter Patient Disposition: Home Condition: Stable Instructions: Nasal Fracture (ED), Laceration (ED), Head Injury (ED) Additional Instructions: Continue home medications, fall precautions , can take Tylenol for pain as needed.Use the nasal spray twice a day please d not blow your nose .follow with ENT doctor number gven below Patient Language: Irish Prescriptions: No Action aspirin 325 mg tablet 325 mg PO DAILY Ocuvite Eye Plus Multi 200-15-150 mcg tablet 2 tablet PO DAILY Rx Instructions: administer with a meal and a large glass of water cholecalciferol (vitamin D3) 10 mcg (400 unit) capsule 10 mcg PO DAILY ferrous sulfate 324 mg (65 mg iron) tablet,delayed release (DR/EC) 324 mg PO DAILY Qty: 60 5RF cyanocobalamin (vitamin B-12) 1,000 mcg capsule 1,000 mcg PO .every other day levothyroxine 50 mcg tablet 50 mcg PO DAILY Qty: 90 3RF simvastatin 20 mg tablet 20 mg PO DAILY Qty: 90 3RF lisinopril 20 mg tablet 20 mg PO DAILY Qty: 90 3RF diltiazem HCl 240 mg capsule,extended release 24hr See Rx Instructions .ROUTE .COMPLEX Qty: 90 3RF Dose Instruction: TAKE 1 CAPSULE BY MOUTH DAILY Rx Instructions: TAKE 1 CAPSULE BY MOUTH DAILY sertraline 50 mg tablet 50 mg PO DAILY Qty: 90 3RF Follow-up/Referrals: Sanjiv Knapp MD [Physician, Ear, Nose, Throat] Serge Beck DO [Primary Care Provider, Internal Medicine] Time of Disposition: 17:41
--- OUTSIDE RECORDS SUMMARY | 2025-02-13 17:53 | XMS_ITS | Clinical Summary ---
Author Organization [facility] Address [address] [place] [address] Care Team Providers Care Autopsy Pathologist Name Role Phone Shyam Bassett Primary Care Provider Source Comments [facility],non-owned Affiliates and Associated Physician Practices is amultiple site organization consisting of ambulatory clinics and hospital sitesin [place], [place], [place] and [place]. This disclosure is being madepursuant to the Care Everywhere program and may not contain all information available regarding this patient. Last updated 18.[facility] [employer] Immunizations Immunization Administration Dates Next Due INFLUENZA VACCINE, HIGH-DOSE , QUADR. (FLUZONE HIGH-DOSE QUADRIVALENT; 65Y+), 0.7 ML (HD-IIV4) 02/10/2020 Social History Tobacco Use Types Packs/Day Years Used Date Smoking Tobacco: Never Assessed Sex and Gender Information Value Date Recorded Sex Assigned at Not on file Legal Sex Male 4:04 AM CDT Gender Identity Not on file [...] 2003 ZOSTER VACCINE (1 of 2) 2003 DEPRESSION SCREENING 04/24/2024 COVID-19 VACCINE ( - 2023-2 5 season) 2024 INFLUENZA VACCINE (#1) 2024 02/10/2020 Respiratory Syncytial Virus (RSV) Vaccine Pt: or [...] on patient's age to complete this topic Insurance MANAGED MEDICARE ADV MANAGED MEDICARE ADV Care Teams Autopsy Pathologist Relationship Specialty Start Date End Date Shyam Bassett DO [address] [place] [address] PCP - General 10/10/18
--- OUTSIDE RECORDS SUMMARY | 2025-02-13 17:53 | XMS_ITS | Clinical Summary ---
Author Organization [facility] Address [address] [place] [address] Care Team Providers Care Spray Applicator Name Role Phone Serge Beck Primary Care Provider [phone] Allergies No known active allergies Medications aspirin [...] tablet Take 50 mcg by mouth daily early childhood specialist. Active CHOLECALCIFEROL, VITAMIN D3, ORAL Take by mouth. Active sertraline (ZOLOFT) 50 mg tablet Take 50 mg by mouth daily. 06/28/2022 Active Active Problems Problem Noted Date Diagnosed Date MGUS (monoclonal gammopathy of unknown significa nce) 06/12/2017 Benign hypertension 08/19/2016 Leukemoid reaction 08/19/2016 Chronic anemia 08/19/2016 Encounters Date Type Department Care Team Description 02/11/2025 External Device Data [facility] ABSTRACTION Provider, Abstract 01/07/2025 External Device Data ST[facility] ABSTRACTION Provider, Abstract 12/24/2024 External Device Data [facility] ABSTRACTION Provider, Abstract [...] Sign Reading Time Taken Comments Blood Pressure 115/73 08/08/2024 9:46 AM CDT Pulse 74 08/08/2024 9:46 AM CDT Temperature 35.9 C (96.7 F) 08/08/2024 9:46 AM CDT Respiratory Rate 16 08/08/2024 9:46 AM CDT Oxygen Saturation 97% 08/08/2024 9:46 AM CDT Inhaled Oxygen Concentration - - Weight 100.7 kg (222 lb) 08/08/2024 9:46 AM CDT Height 175.3 cm (5' 9) 08/05/2021 11:41 AM CDT Body Mass Index 32.78 08/05/2021 11:41 AM CDT Plan of Treatment Upcoming Encounters Date Type Department Care Team (Late st Contact Info) Description 07/24/2025 11:00 AM CDT Office Visit [facility] Oncology and Hematology - [place] [address] [facility] [address] [place] [address] Reji Escalona MD [address] [facility] [address] [place] [address] Health Maintenance Due Date Last Done Comments DTAP/TDAP/TD VACCINES (1 - Tdap) 1972 COLORECTAL SCREENING 1998 Colorectal Cancer Screening 1998 FIT-DNA Q 3 years 1998 FIT/FOBT Q 1 year 1998 Flex Sig/CT Colonography Q 5 years 1998 PNEUMOCOCCAL VACCINE 50+ YEA RS (1 of 1 - PCV) 2003 RSV VACCINE (60+ or ) (1 - Risk 50-74 years 1-dose series) 2003 ZOSTER VACCINE (1 of 2) 2003 Abdominal Aortic Aneurysm (AAA) Screening 2018 INFLUENZA VACCINE (#1) 2024 02/10/2020, 2019 Insurance Care Teams Spray Applicator Relationship Specialty Start Date End Date Serge Beck DO [address] [facility] [address] [place] [address] PCP - General Internal Medicine 08/08/24
--- OUTSIDE RECORDS SUMMARY | 2025-02-13 17:53 | XMS_ITS | Clinical Summary ---
Author Organization [facility] Address [address] [place] [address] Phone Care Team Providers Care Bus Greaser Name Role Phone Shyam Bassett DO Primary Care Provider [phone] Allergies No known active allergies Medications aspirin [...] 9:15 AM CDT Height 175.3 cm (5' 9) 01/05/2022 9:15 AM CDT Body Mass Index 33.67 01/05/2022 9:15 AM CDT Plan of Treatment Health Maintenance Due Date Last Done Comments Pneumococcal PPSV23/PCV13 65 + Years / Low and Medium Risk (1 of 2 - PCV) 2003 Influenza Vaccine (#1) 2024 Insurance [facility] MEDICARE Care Teams Bus Greaser Relationship Specialty Start Date End Date Shyam Bassett DO [address] [facility] [address] [place] [address] PCP - General Internal Medicine 09/11/18
--- OUTSIDE RECORDS SUMMARY | 2025-02-13 17:54 | XMS_ITS | Clinical Summary ---
Author Organization [facility] Address [address] [place] [address] Care Team Providers Care Market Research Specialist Name Role Phone Serge Beck DO Primary Care Provider [phone] Allergies No known active allergies Medications dilTIAZem CD 240 mg 24 hr capsuleIndicati ons:hypertensio n Take 1 capsule (240 mg total) by mouth every morning 0 Active ferrous sulfate ER 324 mg (65 mg iron) EC tabletIndicatio ns:Iron Deficiency Anemia Take 1 tablet (324 mg total) by mouth with lunch Active levothyroxine (SYNTHROID) 50 mcg tabletIndicatio ns:hypothyroidi sm Take 1 tablet (50 mcg total) by mouth every morning 0 Active lisinopriL (PRINIVIL,ZESTR IL) 20 mg tabletIndicatio ns:hypertension Take 1 tablet (20 mg total) by mouth every evening 5 Active sertraline (ZOLOFT) 50 mg tabletIndicatio ns:depression Take 1 tablet (50 mg total) by mouth with lunch 3 Active simvastatin (ZOCOR) 20 mg tabletIndicatio ns:hyperlipidem ia Take 1 tablet (20 mg total) by mouth nightly 5 Active aspirin 81 mg enteric coated tabletIndicatio ns:prevention of thrombosis Take 1 tablet (325 mg total) by mouth nightly Active ascorbic acid (VITAMIN C ORAL)Indication s:supplement Take 1 tablet by mouth daily Active cholecalciferol , vitamin D3, (VITAMIN D3 ORAL)Indication s:supplement Take 1 tablet by mouth daily Active VITAMIN B COMPLEX ORALIndications :supplement Take 1 tablet by mouth every other day Active oxymetazoline (AFRIN) 0.05 % nasal sprayIndication s:congestion Administer 2 sprays into each nostril nightly Active vit C/vit E/lutein/min/om ega-3 (OCUVITE ORAL)Indication s:supplement Take 1 tablet by mouth daily Active sodium bicarbonate/cit carly acid (ALIDA-SELTZER HEARTBURN ORAL)Indication s:heartburn Take 1 tablet/chew tab by mouth as needed Active ranitidine HCl (ZANTAC 75 ORAL)Indication s:heartburn Take 75 mg by mouth as needed Active ibuprofen 200 mg tab/cap Take 2 tablet/capsule (400 mg total) by mouth every 6 (six) hours as needed for pain Active HYDROcodone-bridgett taminophen (NORCO) 5-325 mg per tabletIndicatio ns:Pain Take 1 tablet by mouth every 6 (six) hours as needed for pain 15 tablet 5 Active ofloxacin (FLOXIN) 0.3 % otic solution Administer 5 drops into the left ear 2 (two) times a day 5 mL 2 5 Active Active Problems Problem Noted Date Diagnosed Date Cholesteatoma of left ear 09/30/2024 Conductive hearing loss of l eft ear with unrestricted hearing of right ear 09/30/2024 Chronic mastoiditis, left 09/30/2024 Perforation of left tympanic membrane 09/30/2024 Monoclonal gammopathy of unknown significance (M FAUSTO) 06/12/2017 Other hyperlipidemia 01/01/2017 Overview (07/16/2024): Converted unresolved ICD9, potential mismatch. Renal function test abnormal 01/01/2017 Stage 3 chronic kidney disease 01/01/2017 Hypertensive chronic kidney disease with stage 1 through stage 4 chronic kidney disease, or unspecified chronic kidney disease 01/01/2017 Benign hypertension 08/19/2016 Chronic anemia 08/19/2016 Leukemoid reaction 08/19/2016 Leukocytosis 08/19/2014 Encounters Date Type Department Care Team Description 02/10/2025 10:00 AM CDT Office Visit [facility] Medicine Otolaryngology [address] [place] [address] Олег Rivero MD Chronic atticoantral suppurative otitis media of left ear (Primary Dx); Conductive hearing loss of left ear, unspecified hearing status on contralateral side 02/10/2025 9:40 AM CDT Procedure visit [facility] [address] [place] [address] Mixed conductive and sensorineural hearing loss of left ear with restricted hearing of right ear (Primary Dx); Sensorineural hearing loss (SNHL) of right ear with restricted hearing of left ear from Last 3 Months Surgical History Surgery Date Site/Laterality Comments TONSILLECTOMY 04/24/1958 - 04/23/1959 TOE SURGERY Left great toe COLONOSCOPY x2 LIPOMA RESECTION neck TYMPANOPLASTY W/ MASTOIDECTOMY 09/30/2024 Ear/Left Procedure: TYMPANOPLASTY WITH MASTOIDECTOMY.; Surgeon: Олег Rivero MD; Location: [facility] OPERATING RO[facility]; Service: Otolaryngology; Laterality: Left; Medical devices from this surgery are in the Medical Devices section. Family History Medical History Relation Name Comments Anesthesia problems Neg Hx Malig Hypertension Neg Hx [place] Hyperthermia Neg Hx Pseudochol deficiency Neg Hx Social History Tobacco Use Types Packs/Day Years Used Date Smoking Tobacco: Former Cigarettes Smokeless Tobacco: Never Tobacco Cessation:Counseling Given: Not Answered AUDIT-C Answer Date Recorded Q1: How often do you have a drink containing alc ohol? Monthly or less 09/30/2024 Q2: How many drinks containi ng alcohol do you have on a typical day when you are drinking? 1 or 2 09/30/2024 Q3: How often do you have si x or more drinks on one occasion? Never 09/30/2024 Personal Safety Answer Date Recorded Have you ever been in or are you currently in a harmful physical or emotional relationship or is someone making you feel afraid or unsafe? Denies 09/30/2024 Sex and Gender Information Value Date Recorded Sex Assigned at Not on file Legal Sex Male 8:19 AM CDT Gender Identity Not on file Sexual Orientation Not on file Obstetrics History Last Filed Vital Signs Vital Sign Reading Time Taken Comments Blood Pressure 108/58 09/30/2024 1:30 PM CDT Pulse 98 09/30/2024 1:30 PM CDT Temperature 36.8 C (98.2 F) 09/30/2024 12:55 PM CDT Respiratory Rate 28 09/30/2024 1:30 PM CDT Oxygen Saturation 94% 09/30/2024 1:30 PM CDT Inhaled Oxygen Concentration - - Weight 98.2 kg (216 lb 6.4 oz) 09/30/2024 9:50 A M CDT Height 175.3 cm (5' 9) 09/30/2024 9:50 AM CDT Body Mass Index 31.96 09/30/2024 9:50 AM CDT Plan of Treatment Upcoming Encounters Date Type Department Care Team (Latest Contact Info) Description 03/14/2025 10:20 AM CARD PLACER Hospital Encounter [facility] [place] [facility] [address] [place] [id number] Олег Rivero MD [address] [id number] 03/14/2025 10:20 AM CARD PLACER - 03/14/2025 11:50 AM CARD PLACER Surgery [facility] [place] [facility] [address] [place] [phone] Олег Rivero MD [address] [address] TYMPANOPLASTY WITH RECONSTRUCTION OSSICULAR CHAIN. Scheduled Procedures Name Priority Associated Diagnoses Date/Ti me TYMPANOPLASTY WITH RECONSTRUCTION OSSICULAR CHAIN. Conductive hearing loss of left ear with unrestricted hearing of right ear 03/14/2025 10:20 AM CARD PLACER Health Maintenance Due Date Last Done Comments Colon Cancer Screening-Colonoscopy 1955 Depression Screening 1955 Hepatitis C Screening 1953 Hepatitis B Screening 1971 Abdominal Aortic Aneurysm (A AA) Screen 2018 Well Visit 65+ 2018 Covid-19 Vaccine ( season) 2024 12/31/2023, 01/13/2023, 01/30/2022, Additional history exists Influenza Vaccine (#1) 2024 4, 02/10/2023, 02/28/2022, Additional history exists Fall Risk Assessment 09/30/2025 09/30/2024 DTaP/Tdap/Td Vaccine (2 - Td or Tdap) 02/11/2026 02/12/2016 Zoster Vaccine Completed 05/29/2020, 03/30/2020 Pneumococcal vaccine 65+ Completed 2022 Goals Goal Patient Goal Type Associated Problems Recent Progress Patient-Stated? Author Autogenerat ed Goal Care Plan Autogenerated Problem No Alla Lowery RN Medical Devices Implanted Type Area Nozzle Cement Sprayer Helper Device Identifier Shelf Expiration Date Model / Serial / Lot Implantech Sheeting Silastic Non Reinforced [employer] [id number] Silicone 23-700-40 - [id number] Implanted:Qty: 1 on 09/30/2024 by Олег Rivero MD at [facility] [place] Left: Ear Implantech [id number] 02/20/2029 [id number] Procedures Procedure Name Priority Date/Time Associated Diagnosis Comments AUDBASE RESULTS 02/10/2025 9:52 AM CDT from Last 3 Months Results * AudBase Results (02/10/2025 9:52 AM CDT) Provider Scanning AUDIOLOGY SERVICES ORDERABLES Final Result from Last 3 Months Additional Health Concerns Active Problems Noted Date Diagnosed Date Autogenerated Problem 12/12/2024 Insurance [facility] MEDICARE ADVANTAGE [employer] MEDICARE ADVANTAGE Advance Directives For more information, please contact: [phone] Documents on File Type Date Recorded Patient Tissue Packer Expl anation Advance Directives and Livin g Will 09/30/2024 9:40 AM Care Teams Market Research Specialist Relationship Specialty Start Date End Date Serge Beck DO PCP - General Internal Medicine 06/28/24
--- OUTSIDE RECORDS SUMMARY | 2025-02-13 17:54 | XMS_ITS | Encounter Summary ---
Author Organization [facility] Address [address] [place] [address] Care Team Providers Care Senior Financial Consultant Name Role Phone Serge Beck DO Primary Care Provider [phone] Encounter Details Date Type Department Care Team (Late st Contact Info) Description 02/11/2025 External Device Data ST[facility] ABSTRACTION Provider, Abstract NO ADDRESS ON FILE Social History Tobacco Use Types Packs/Day Years [...] Description 07/24/2025 11:00 AM CDT Office Visit [facility] Oncology and Hematology - [place] [address] [place] [address] Reji Escalona MD [address] [facility] [address] [place] [address] documented as of this encounter Visit Diagnoses Not on filedocumented in this encounter Care Teams Senior Financial Consultant Relationship Specialty Start Date End Date Serge Beck DO [address] [facility] [address] [place] [address] PCP - General Internal Medicine 08/08/24 documented as of this encounter
[2025-02-13 18:49] VITALS: BP 127/78; PULSE 73; RESP 18; O2SAT 100
[2025-02-13] MEDS: PHENYLEPHRINE HCL 0.5% NA SPRAY 15 ML BTL (*BKC) 1 SPRAY EACH NARE (18:49)
== END 2025-02-13 18:51 | disposition home or self-care (01) ==
PROVIDERS: Emergency Provider Family Medicine; PCP Internal Medicine
DX: S01.112A Laceration without foreign body of left eyelid and periocular area, initial encounter (principal); S02.2XXA Fracture of nasal bones, initial encounter for closed fracture; W18.30XA Fall on same level, unspecified, initial encounter; N18.9 Chronic kidney disease, unspecified; I12.9 Hypertensive chronic kidney disease with stage 1 through stage 4 chronic kidney disease, or unspecified chronic kidney disease; E03.9 Hypothyroidism, unspecified; E78.5 Hyperlipidemia, unspecified; Z87.891 Personal history of nicotine dependence
CPT/HCPCS: 12011; 70450; 72125; 99284; A9270